=== PATIENT | female | born 2000 | race Caucasian/White ===

== ENCOUNTER 2020-11-11 22:45 | Emergency (ER) | payer SELFPAY ==
[2020-11-11 23:23] VITALS: BP 128/74; PULSE 91; RESP 16; TEMP 36.8; O2SAT 100
--- NOTE | 2020-11-11 23:57 | W.ED.BACK ---
HPI - Back Pain/Injury General: Chief Complaint: Back Pain/Injury Stated Complaint: Left Lower Back Pain Time Seen by Provider: 11/11/20 23:51 History of Present Illness: HPI Narrative: 20-year-old female comes in today for complaints of low back pain. Patient reports she was lifting on her child a couple of days ago and felt a strain in her left lower back. Patient denies any other difficulty. Patient denies any fever or changes in bowel or bladder problem or radiation of pain into the groin. Patient appears well. MD elicited complaint: back pain Review of Systems General: Reports: 10 or more systems reviewed and unremarkable except in HPI and below Musc: Reports: back pain (Left low back pain.) [facility] Female Reproductive History: Date of last menstrual period: 10/18/20 Physical Exam Const: COMMON NORMALS: no acute distress and patient oriented x3 GENERAL APPEARANCE: cooperative HENMT: COMMON NORMALS: normocephalic and Normal external nose present HEAD & SCALP: normal to inspection and normocephalic NOSE: Normal external nose present MOUTH: Normal oral and palatal mucosa present Eye: GENERAL EYE: appearance normal, both eyes and all related structures Neck/C-Spine: COMMON NORMALS: full ROM Chest: COMMONS NORMALS: normal inspection of the chest Resp: COMMON NORMALS: normal respiratory effort EFFORT & INSPECTION: Yes able to speak in complete sentences Cardio: COMMON NORMALS: regular rate and regular rhythm RATE: regular rate RHYTHM: regular rhythm GI: COMMON NORMALS: non-tender Back/Pelvis: THORACIC SPINE/UPPER BACK: No thoracic spinal tenderness LUMBAR SPINE/LOWER BACK: Yes lumbar ROM normal, No lumbar spinal tenderness, Yes paraspinal muscle tenderness Lumbar paraspinal muscle tenderness: left and Yes straight leg raise negative bilaterally Extremity: COMMON NORMALS: normal to inspection Neuro: COMMON NORMALS: patient oriented x3 and moves all extremities Psych: COMMON NORMALS: mental status grossly normal and cooperative Skin: COMMON NORMALS: no rashes or lesions noted GENERAL SKIN EXAM: no rashes or lesions noted Course Vital Signs: Vital signs: Vital Signs Temperature 98.2 F 11/11/20 23:23 Pulse Rate 91 11/11/20 23:23 Respiratory Rate 16 11/11/20 23:23 Blood Pressure 128/74 11/11/20 23:23 Pulse Oximetry 100 11/11/20 23:23 MDM - Back Pain/Injury MDM Narrative: Medical decision making narrative: 20-year-old female comes in today for complaints of left lower back pain. On exam patient appears well. Patient appears in no acute distress. Palpation of the left lower lumbar spine area causes some discomfort and palpable muscle tightness. Differential diagnosis includes not limited to intervertebral disc disease, facet arthropathy, muscle strain. No sign of serious injury or illnesses noted. Reviewed exam with patient with recommendations for treatment and follow-up. Patient reported understanding and agreed to plan. Discharge Plan Discharge Patient Disposition: Home Clinical Impression: Strain of lumbar region Qualifiers: Encounter type: initial encounter Qualified Code(s): S39.012A - Strain of muscle, fascia and tendon of lower back, initial encounter Condition: Stable Discharge Orders: Discharge ED (Routine); Ordered 11/11/20 Ordered By: Reymundo Guadarrama Discharge Diet: Usual diet Discharge Activity: Increase activity as tolerated Patient Instructions: Low Back Strain (ED), Opioid Safety Activity Restrictions/Additional Instructions: Activity as tolerated. Gentle stretching and range of motion exercises. Drink plenty of water. Avoid smoking. Use acetaminophen or ibuprofen for pain. Follow-up with primary care in 7 to 10 days for persistent pain. Return to the ER for high fever, loss of bowel or bladder control, or new concerns. Coding Level of Care Code ED Delivery Engineer for Natty Smith
[2020-11-12 00:22] VITALS: PULSE 81; RESP 18; O2SAT 99
== END 2020-11-12 00:23 | disposition home or self-care (01) ==
PROVIDERS: Emergency Provider Nurse Practitioner Family
DX: S39.012A Strain of muscle, fascia and tendon of lower back, initial encounter (principal); X50.0XXA Overexertion from strenuous movement or load, initial encounter
CPT/HCPCS: 99281

== ENCOUNTER → 2021-11-30 10:11 | Outpatient (BNVA) | payer BC, MEDICAID, SELFPAY | PROVIDERS: Visit Provider Obstetrics & Gynecology | DX: Z34.90 Encounter for supervision of normal pregnancy, unspecified, unspecified trimester (principal) | CPT/HCPCS: 81000; 87081 ==

== ENCOUNTER 2021-12-03 01:19 | Outpatient (CLI) | payer BC, MEDICAID, SELFPAY ==
[2021-12-03] VITALS (12 sets, daily range): BP systolic 110–122; BP diastolic 56–72; PULSE 65–80; RESP 16–17; TEMP 36.1–36.2; BMI 39.6
[2021-12-03] MEDS: lactated ringers 1,000 ML 125 ML IV (02:03)
== END 2021-12-03 04:01 | disposition home or self-care (01) ==
LOC: OPOB 01:20 → OBGYN 01:21
PROVIDERS: Visit Provider Obstetrics & Gynecology
DX: O26.899 Other specified pregnancy related conditions, unspecified trimester (principal); Z3A.00 Weeks of gestation of pregnancy not specified; R10.9 Unspecified abdominal pain
CPT/HCPCS: 59025; 99211

== ENCOUNTER 2021-12-04 14:32 | Outpatient (CLI) | payer BC, MEDICAID, SELFPAY ==
[2021-12-04 14:52] VITALS: BMI 38.7
[2021-12-04 14:57] VITALS: BP 116/62; PULSE 95; RESP 16; TEMP 37; O2SAT 99
[2021-12-04] MEDS: famotidine 20 mg/2 mL INJ IVP (15:15)
[2021-12-04] MEDS: ondansetron 2 mg/ML SDV 2 mL 4 MG IVP (15:17)
[2021-12-04] MEDS: lactated ringers 1,000 ML 999 ML IV (15:20)
[2021-12-04 15:32] LABS: Basophils % 0.3 %; Eosinophils % 0.2 %; Hematocrit 32.6 % (37.0-47.0); Hemoglobin 10.9 g/dL (11.5-15.3); Lymphocytes # 1.7 10^3/uL (0.8-4.8); Lymphocytes % 15.7 %; Mean Corpuscular HGB Conc 33.4 g/dL (30.0-36.0); Mean Corpuscular Volume 77.6 fl (81-99); Mean Platelet Volume 9.5 fL (7.4-10.4); Monocytes # 0.6 10^3/uL (0.2-0.9); Monocytes % 5.5 %; Neutrophils # 8.62 10^3/uL (1.8-7.7); Neutrophils % 77.8 %; Nucleated Red Blood Cells % 0 %; Platelet Count 200 10^3/cmm (130-400); Red Cell Distribution Width 14.1 % (12.1-15.1); White Blood Count 11.1 10^3/uL (4.0-10.0)
[2021-12-04 15:33] VITALS: BP 137/79; PULSE 80
[2021-12-04 15:43] VITALS: BP 126/58; PULSE 75
[2021-12-04 15:59] VITALS: BP 118/57; PULSE 71
[2021-12-04 15:59] LABS: Alanine Aminotransferase 9 U/L (0-33); Albumin Level 3.6 g/dL (3.5-5.2); Alkaline Phosphatase 144 IU/L (35-105); Anion Gap 18.4 (5-19); Aspartate Amino Transferase 5 U/L (0-32); Blood Urea Nitrogen 5 mg/dL (6-20); Carbon Dioxide 18 mmol/L (22-29); Chloride 104 mmol/L (98-107); Glomerular Filtration Rate 201.5 mL/min (90-130); Glucose 81 mg/dL (65-115); Osmolality Calculated 278 mOsm/kg (285-295); Potassium 4.4 mmol/L (3.5-5.1); Sodium 136 mmol/L (136-145); Total Bilirubin 0.4 mg/dL (0.15-1.2); Total Protein 6.6 g/dL (6.6-8.7)
[2021-12-04 16:15] VITALS: BP 122/55; PULSE 73
== END 2021-12-04 16:35 | disposition home or self-care (01) ==
LOC: OPOB 14:32 → OBGYN 14:44
PROVIDERS: Visit Provider Obstetrics & Gynecology
DX: O21.9 Vomiting of pregnancy, unspecified (principal); Z3A.00 Weeks of gestation of pregnancy not specified; E86.0 Dehydration; R50.9 Fever, unspecified
CPT/HCPCS: 36415; 59025; 80053; 85025; 99211; J2405; J3490

== ENCOUNTER → 2021-12-09 10:50 | Outpatient (BNVA) | payer BC, MEDICAID, SELFPAY | PROVIDERS: Visit Provider Obstetrics & Gynecology | DX: Z34.90 Encounter for supervision of normal pregnancy, unspecified, unspecified trimester (principal) | CPT/HCPCS: 81000 ==

== ENCOUNTER 2021-12-14 04:53 | Inpatient (IN) | payer BC, MEDICAID, SELFPAY ==
--- NOTE | 2021-12-06 10:58 | P.ANESASSM_ITS ---
Pre-Anesthetic Assessment Height/Weight: Height 1.63 m Preop Diagnosis: IUP Operation Date: 12/14/21 07:00 Proposed Procedures p Section Repeat 77778,O34.219(Not Applicable) - Radha Echevarria MD Familial anesthetic complications: None Social No alcohol and No tobacco Exam alert, oriented x 3, clear to auscultation bilaterally and regular rate & rhythm Airway Mallampati: Class III Dentition: chipped and other (missing) Pulmonary Asthma (cigarette-smoke induced ) CV/HEM None reported None reported Hepatic None reported GI Gastroesophageal Reflux Disease Metabolic None reported Musc/skel None reported Neuropsych None reported Anesthetic Plan ASA status: 2 Anesthesia: Regional (specify below) Other: spinal Risk of > 500 ml blood loss (7ml/kg in children): Yes, adequate IV access and fluids planned Medications/Allergies Home Medications Medication Instructions Recorded Confirmed Last Taken Type famotidine 40 mg tablet (Pepcid) 40 mg PO DAILY 11/30/21 12/04/21 12/04/21 History metoclopramide HCl 5 mg tablet 5 mg PO DAILY 11/30/21 12/04/21 12/04/21 History (Reglan) vitamins with calcium 1 tab PO DAILY 11/30/21 12/04/21 12/04/21 History no.72-iron 29 mg-folic acid 1 mg tablet ( Plus) sertraline 25 mg tablet (Zoloft) 25 mg PO DAILY 11/30/21 12/04/21 12/04/21 His tory Allergies Allergy/AdvReac Type Severity Reaction Status Date / Time No Known Allergies Allergy Verified 12/04/21 16:14 [facility] Anesthesia Medical History (Updated 12/02/21 @ 12:21 by Radha Echevarria MD) Anxiety Depression History of pyloric stenosis as a child Surgical History (Updated 11/30/21 @ 10:44 by Radha Echevarria MD) History of Family History (Updated 11/30/21 @ 10:13 by Kiah Loaiza LPN) Grandmother Stroke Maternal Breast cancer Paternal Denies family history of Diabetes CAD (coronary artery disease) Hyperlipidemia Chronic kidney disease (CKD) Bleeding disorder Hypertension Thyroid disease Female Reproductive History Date of last menstrual period: 10/18/20 Data Anesthesia Cardiac Studies: No Data to Display
[2021-12-14] VITALS (15 sets, daily range): BP systolic 102–134; BP diastolic 56–94; PULSE 45–80; RESP 14–17; TEMP 36.7–36.9; O2SAT 94–98; BMI 39.1
[2021-12-14 05:34] LABS: Basophils % 0.2 %; Eosinophils % 0.3 %; Hematocrit 34.8 % (37.0-47.0); Hemoglobin 11.2 g/dL (11.5-15.3); Lymphocytes # 2.4 10^3/uL (0.8-4.8); Lymphocytes % 24.2 %; Mean Corpuscular HGB Conc 32.2 g/dL (30.0-36.0); Mean Corpuscular Hemoglobin 25.7 pg (28.0-34.0); Mean Corpuscular Volume 79.8 fl (81-99); Mean Platelet Volume 9.5 fL (7.4-10.4); Monocytes # 0.4 10^3/uL (0.2-0.9); Monocytes % 4.2 %; Neutrophils # 6.96 10^3/uL (1.8-7.7); Neutrophils % 70.6 %; Nucleated Red Blood Cells % 0 %; Platelet Count 167 10^3/cmm (130-400); Red Blood Count 4.36 10^6/uL (4.1-5.3); Red Cell Distribution Width 13.9 % (12.1-15.1); White Blood Count 9.9 10^3/uL (4.0-10.0)
[2021-12-14] MEDS: lactated ringers 1,000 ML 999 ML IV (05:39)
[2021-12-14 05:40] LABS: Add Urine Microscopic? NO; Charge for UA Resulting for Rev
[2021-12-14 05:46] LABS: Bilirubin Urine Neg (Negative); Blood Urine Neg (Negative); Glucose Urine UA Norm (Normal); Ketones Urine Negative (Negative); Leukocyte Esterase Urine Negative (Negative); Nitrate Urine Negative (Negative); Protein Urine Neg (Negative); Urine Appearance Clear (CLEAR); Urine Color Yellow (Yellow); Urobilinogen Urine Norm (Negative); pH Urine 7 (5-7)
[2021-12-14 07:01] LABS: Amphetamines Screen Urine Negative (Negative); Barbiturates Screen Urine Negative (Negative); Benzodiazepines Screen Urine Negative (Negative); Cocaine Screen Urine Negative (Negative); Opiate Screen Urine Negative (Negative); PCP Screen Urine Negative (Negative); THC Screen Urine Negative (Negative)
--- NOTE | 2021-12-14 07:31 | W.PM.OPSUD ---
Surgery/Procedure H&P Update DATE OF PROCEDURE: December 14, 2021 DATE H&P PERFORMED: 12/09/21 H&P UPDATE INFORMATION: I have reviewed H&P completed within last 30 days, I have examined patient prior to procedure and No changes to prior documentation CHANGES TO PREVIOUS DOCUMENTATION: The patient at a donut at 4:00 am, so surgery has been rescheduled for 12:00 PREOP DIAGNOSIS: IUP PLANNED PROCEDURE: Operation Date: 12/14/21 07:00 Proposed Procedures p Section Repeat 44739,O34.219(Not Applicable) - Radha Echevarria MD Related Problem List Diagnoses (1) Rh negative state in antepartum period: (2) Obesity: (3) GERD (gastroesophageal reflux disease): (4) Previous delivery affecting : (5) Supervision of normal :
--- NOTE | 2021-12-14 09:56 | P.ANESASSM_ITS ---
Pre-Anesthetic Assessment Height/Weight: Height 1.63 m Weight 103.419 kg Pulse BP O2 Del Method 74 126/72 12/14/21 06:31 12/14/21 06:31 12/14/21 06:30 Preop Diagnosis: IUP Operation Date: 12/14/21 07:00 Proposed Procedures p Section Repeat 00474,O34.219(Not Applicable) - Radha Echevarria MD Familial anesthetic complications: difficult spinal with prior c section Was Beta Néstor taken within 24 hours: N/A Was Clonidine taken within 24 hours: N/A Last intake: Intake Last Liquid Date 12/14/21 Last Liquid Time 04:00 Last Solid Date 12/14/21 Last Solid Time 04:00 Social No alcohol and No tobacco Exam alert, oriented x 3, clear to auscultation bilaterally and regular rate & rhythm Airway Submandibular: within normal limits Cervical ROM: within normal limits Mallampati: Class I Dentition: full History/ROS No significant complaints Pulmonary None reported CV/HEM None reported None reported Hepatic None reported GI None reported Metabolic None reported Musc/skel None reported Neuropsych Anxiety, Depression and None reported Anesthetic Plan ASA status: 2 Anesthesia: Anesthesia Evaluation and Regional (specify below) (Spinal) Other: We discussed risk and benefits of spinal anesthesia including infection, paralysis/catastrophic nerve injury, back bruising/pain, PDPH, conversion to general in case of spinal failure, intraoperative and PONV, life threatening allergic reaction, post operative ICU admission requiring prolonged intubation, stroke, heart attack. Risk of > 500 ml blood loss (7ml/kg in children): No Medications/Allergies Home Medications Medication Instructions Recorded Confirmed Last Taken Type famotidine 40 mg tablet (Pepcid) 40 mg PO DAILY 11/30/21 12/14/21 12/04/21 [place] metoclopramide HCl 5 mg tablet 5 mg PO DAILY 11/30/21 12/14/21 12/04/21 History (Reglan) vitamins with calcium 1 tab PO DAILY 11/30/21 12/14/21 12/13/21 History no.72-iron 29 mg-folic acid 1 mg tablet ( Plus) sertraline 25 mg tablet (Zoloft) 25 mg PO DAILY 11/30/21 12/14/21 12/13/21 History Allergies Allergy/AdvReac Type Severity Reaction Status Date / Time No Known Allergies Allergy Verified 12/14/21 06:14 [facility] Anesthesia Medical History Anxiety Depression History of pyloric stenosis as a child Surgical History History of Family History Grandmother Stroke Maternal Breast cancer Paternal Denies family history of Diabetes CAD (coronary artery disease) Hyperlipidemia Chronic kidney disease (CKD) Bleeding disorder Hypertension Thyroid disease Female Reproductive History Date of last menstrual period: 10/18/20 : 5 Data Anesthesia : 12/14/21 05:15 Short CBC 12/14/21 Range/Units 05:15 WBC 9.9 (4.0-10.0) 10^3/uL Hgb 11.2 L (11.5-15.3) g/dL Hct 34.8 L (37.0-47.0) % MCV 79.8 L (81-99) fl Plt Count 167 (130-400) 10^3/cmm Neut % (Auto) 70.6 % Neut # (Auto) 6.96 (1.8-7.7) 10^3/uL Urine 12/14/21 Range/Units 05:15 Urine Color Yellow (Yellow) Urine Appearance Clear (CLEAR) Urine pH 7 (5-7) Ur Specific [place] 1.010 (1.005-1.030) Urine Protein Neg (Negative) Urine Glucose (UA) Norm (Normal) Urine Ketones Negative (Negative) Urine Nitrate Negative (Negative) Urine Bilirubin Neg (Negative) Ur Leukocyte Esterase Negative (Negative) Blood Bank 12/14/21 05:15 Blood Type A Negative Rho(D) Type Negative Cardiac Studies: No Data to Display
[2021-12-14] MEDS: ceFAZolin 2,000 MG in sodium chloride 0.9% (plus) 50 ML 100 MG IV (11:22)
[2021-12-14] MEDS: lactated ringers 1,000 ML 125 ML IV (11:23)
[2021-12-14] MEDS: citric acid-sodium citrate 30 mL UDC PO (11:34)
[2021-12-14] MEDS: metoclopramide 5 mg/mL SDV 2 mL 10 MG IVP ×2 (11:34→11:35)
--- NOTE | 2021-12-14 13:13 | PM.OP ---
Operative Report Date of procedure: December 14, 2021 Pre-op diagnosis: Preop Diagnosis IUP @ 39 weeks, previous , desires repeat Post-op diagnosis: same Post-op findings: normal appearing uterus, tubes and ovaries. Narrow pelvis Procedure done: repeat Specimens removed/disposition: placenta-discarded Pathology: none sent Surgeon: Radha Echevarria Anesthesia: Other (spinal) and None Estimated blood loss (mL): 150 IV fluids (mL): 1,400 Urine output (mL): 250 Complications: none Findings: term male in the cephalic presentation with a single nuchal cord Condition: stable Disposition: floor Brief History: The patient presented for a repeat . The patient admitted to eating a doughnut on the way to the hospital. The surgery was postponed for 8 hours and the proceeded Procedure: The patient was taken to the operating room where spinal anesthesia was administered and found to be adequate. She was prepped and draped in the normal sterile fashion in the dorsal supine position with a leftward tilt. A Pfannenstiel skin incision was made and carried down to the underlying layer of fascia. The fascia was nicked in the midline and extended laterally with the Moctezuma scissors. The fascia was then tented up and the rectus muscles dissected off sharply. The rectus muscles were and the peritoneum entered bluntly with the digit. The peritoneal incision was extended superiorly and inferiorly with good visualization of the bladder. The Christiano O retractor was placed. It was clear of any bowel or omentum. The bladder flap was created sharply with the Metzenbaum scissors. A low transverse uterine incision was made and carried down to the bag of water. The bag of water was ruptured and the uterine incision extended cephalocaudad. The scalp was grasped but was unable to be brought through the incision. A vacuum was placed and the head delivered. A single nuchal cord was reduced. The nose and mouth were bulb suctioned. The shoulders and body delivered atraumatically. The baby was allowed to rest, while being dried, for 1 minute and then the cord was clamped and cut. The baby was handed to the waiting final assembly inspector. The placenta was delivered by expression. The uterus was exteriorized and cleared of all clots and debris. The uterine incision was closed with 0 Vicryl in a running fashion. A second imbricating layer of 3-0 Monocryl was used to close the uterus. The bladder flap was closed with 3-0 Monocryl. There was excellent hemostasis. The Christiano O retractor was removed. The uterus was returned to the abdomen. The peritoneum was closed with 3-0 Monocryl, incorporating the rectus muscle. The fascia was closed with 0 Vicryl in 2 separate sutures overlapping in the midline. The skin was closed with absorbable raeann. Apgars on baby 9 at 1 minute and 9 at 5 minutes. weight 7 pounds 11 ounces. Mother and baby were stable post delivery.
[2021-12-14] MEDS: ketorolac 30 mg/mL INJ IVP ×2 (14:21→20:52)
--- NOTE | 2021-12-14 14:26 | ANE.PACU2 ---
Inpatient post-anesthesia follow up: Airway intact: Yes Vital signs: Temperature Pulse Rate 65 Respiratory Rate 15 Blood Pressure 128/65 Pulse Oximetry Oxygen Delivery Me thod Room Air Oxygen Flow Rate Fraction of Inspir ed Oxygen Hydration adequate: Yes Nausea and vomiting: No Pain level: 3 Mental status: Baseline
[2021-12-14] MEDS: ondansetron 2 mg/ML SDV 2 mL 4 MG IVP (15:21)
[2021-12-14] MEDS: lactated ringers 1,000 ML 75 ML IV (15:53)
[2021-12-14] MEDS: oxytocin 30 UNIT/500 ML BAG 50 UNIT IV (15:54)
[2021-12-14] MEDS: docusate sodium 100 mg Capsule PO (20:52)
[2021-12-15] MEDS: oxytocin 30 UNIT/500 ML BAG 50 UNIT IV (01:22)
[2021-12-15 01:53] LABS: Hematocrit 32.2 % (37.0-47.0); Hemoglobin 10.7 g/dL (11.5-15.3); Mean Corpuscular HGB Conc 33.2 g/dL (30.0-36.0); Mean Corpuscular Hemoglobin 25.7 pg (28.0-34.0); Mean Corpuscular Volume 77.4 fl (81-99); Mean Platelet Volume 9.1 fL (7.4-10.4); Platelet Count 145 10^3/cmm (130-400); Red Blood Count 4.16 10^6/uL (4.1-5.3); Red Cell Distribution Width 13.7 % (12.1-15.1); White Blood Count 10.1 10^3/uL (4.0-10.0)
[2021-12-15 03:25] VITALS: BP 131/75; PULSE 59; RESP 16
[2021-12-15] MEDS: lactated ringers 1,000 ML 125 ML IV (04:35)
[2021-12-15] MEDS: ketorolac 30 mg/mL INJ IVP (04:39)
--- NOTE | 2021-12-15 07:55 | P.PN_ITS ---
Subjective Subjective: The patient has no concerns after her section yesterday. Vitals/I&O/Wt Last Vital Signs Temp 98.4 F 12/14/21 23:25 Pulse 59 L 12/15/21 03:25 Resp 16 12/15/21 03:25 BP 131/75 12/15/21 03:25 Pulse Ox 98 12/14/21 21:25 O2 Del Method 12/15/21 03:25 12/14/21 12/15/21 12/15/21 22:59 06:59 14:59 Intake Total 1000 / 1000 473.333 / 1473.333 Output Total 685 / 935 475 / 1410 Balance 315 / 65 -1.667 / 63.333 Weight last 48 hrs Weight 228 lb Weight 228 lb Physical Exam Narrative: The patient is doing well this morning. No concerns Const: COMMON NORMALS: no acute distress, patient oriented x3, no limitations, healthy appearing, alert and well nourished GENERAL APPEARANCE: cooperative, comfortable, well kempt and well developed ORIENTATION/CONSCIOUSNESS: Yes awake, Yes oriented to person, Yes oriented to place and Yes oriented to time Resp: COMMON NORMALS: normal respiratory effort EFFORT & INSPECTION: Yes able to speak in complete sentences GI: COMMON NORMALS: Soft to palpation and non-tender PALPATION: Yes Soft to palpation Extremity: COMMON NORMALS: no calf tenderness Neuro: COMMON NORMALS: patient oriented x3 SENSORIUM/ORIENTATION: Yes alert, Yes oriented to person, Yes oriented to place and Yes oriented to time Psych: APPEARANCE: Yes well kempt Urinary Catheter Management: Moncada: Cath Placed During This Visit: yes Reason for Continuing Indwelling Catheter: Required Immobilization for Trauma or Surgery or Anesthesia Urinary Catheter Date of Insertion: 12/14/21 Urinary Catheter Time of Insertion: 12:17 Data : 12/15/21 01:48 A&P Assessment and plan (1) Previous delivery affecting : routine postoperative care plan for discharge tomorrow Status: Acute Attestations Medical Necessity Statement*: she had a . She will be her two midnights. Coding Level of Care Code Acute Seasonal Delivery Driver for Ninfag Sarah Diagnoses Previous delivery affecting O34.219
[2021-12-15] MEDS: docusate sodium 100 mg Capsule PO ×2 (09:37→22:10)
[2021-12-15] MEDS: prenatal vitamin Capsule 1 CAP PO (09:37)
[2021-12-15] MEDS: ferrous sulfate EC 325 mg Tablet PO (09:37)
[2021-12-15] MEDS: ibuprofen 800 mg tablet PO ×3 (09:37→22:09)
[2021-12-15 13:21] VITALS: BP 110/65; PULSE 75; RESP 15; TEMP 36.7; O2SAT 96
[2021-12-15 14:18] VITALS: RESP 16
[2021-12-15] MEDS: oxyCODONE-APAP 5-325 mg Tablet PO (14:18)
[2021-12-15 22:16] VITALS: BP 116/67; PULSE 78; RESP 16; TEMP 36.8
[2021-12-16 04:28] VITALS: BP 131/76; PULSE 78; RESP 16; TEMP 36.7
[2021-12-16 05:49] VITALS: RESP 16
[2021-12-16] MEDS: oxyCODONE-APAP 5-325 mg Tablet PO (05:49)
--- NOTE | 2021-12-16 09:16 | PM.DCS ---
Discharge Providers Date of Admission: 12/14/21 04:53 Date of Discharge: December 16, 2021 Attending Provider at Admission: Radha Echevarria MD Attending Provider at Discharge: Radha Echevarria MD Diagnoses at Discharge Discharge Diagnosis (1) Previous delivery affecting : Status: Acute Reason for Visit Reason for Visit: EDC 12/14/21 Hospital Course Hospital Course The patient was admitted for repeat . She ate on the way to the hospital and so the surgery was delayed 8 hours. She did well postoperatively and was ready for discharge on day #3. Physical Exam Narrative: doing well. No concerns today Const: COMMON NORMALS: no acute distress, patient oriented x3, no limitations, healthy appearing, alert and well nourished GENERAL APPEARANCE: cooperative, comfortable, well kempt and well developed ORIENTATION/CONSCIOUSNESS: Yes awake, Yes oriented to person, Yes oriented to place and Yes oriented to time Resp: COMMON NORMALS: normal respiratory effort EFFORT & INSPECTION: Yes able to speak in complete sentences GI: COMMON NORMALS: Soft to palpation and non-tender PALPATION: Yes Soft to palpation Extremity: COMMON NORMALS: no calf tenderness Neuro: COMMON NORMALS: patient oriented x3 SENSORIUM/ORIENTATION: Yes alert, Yes oriented to person, Yes oriented to place and Yes oriented to time Psych: APPEARANCE: Yes well kempt Urinary Catheter Management: Moncada: Cath Placed During This Visit: yes, but has since been removed by the nurse Reason for Continuing Indwelling Catheter: Decision to DC Catheter Urinary Catheter Date of Insertion: 12/14/21 Urinary Catheter Time of Insertion: 12:17 Date Urinary Catheter Removed: 12/15/21 Time Urinary Catheter Discontinued: 08:00 Discharge Data Studies Completed and Pending Laboratory Results WBC 10.1 10^3/uL (4.0-10.0) H 12/15/21 01:48 RBC 4.16 10^6/uL (4.1-5.3) 12/15/21 01:48 Hgb 10.7 g/dL (11.5-15.3) L 12/15/21 01:48 Hct 32.2 % (37.0-47.0) L 12/15/21 01:48 MCV 77.4 fl (81-99) L 12/15/21 01:48 MCH 25.7 pg (28.0-34.0) L 12/15/21 01:48 MCHC 33.2 g/dL (30.0-36.0) 12/15/21 01:48 RDW 13.7 % (12.1-15.1) 12/15/21 01:48 Plt Count 145 10^3/cmm (130-400) 12/15/21 01:48 MPV 9.1 fL (7.4-10.4) 12/15/21 01:48 Neut % (Auto) 70.6 % 12/14/21 05:15 Lymph % (Auto) 24.2 % 12/14/21 05:15 [place] % (Auto) 4.2 % 12/14/21 05:15 Eos % (Auto) 0.3 % 12/14/21 05:15 Baso % (Auto) 0.2 % 12/14/21 05:15 Neut # (Auto) 6.96 10^3/uL (1.8-7.7) 12/14/21 05:15 Lymph # (Auto) 2.4 10^3/uL (0.8-4.8) 12/14/21 05:15 [place] # (Auto) 0.4 10^3/uL (0.2-0.9) 12/14/21 05:15 Eos # (Auto) 0.0 10^3/uL (0.0-0.8) 12/14/21 05:15 Baso # (Auto) 0.0 10^3/uL (0.0-0.1) 12/14/21 05:15 Nucleated RBC % (auto) 0 % 12/14/21 05:15 Nucleated RBCs # 0.0 /100WBC 12/14/21 05:15 Urine Color Yellow (Yellow) 12/14/21 05:15 Urine Appearance Clear (CLEAR) 12/14/21 05:15 Urine pH 7 (5-7) 12/14/21 05:15 Ur Specific [place] 1.010 (1.005-1.030) 12/14/21 05:15 Urine Protein Neg (Negative) 12/14/21 05:15 Urine Glucose (UA) Norm (Normal) 12/14/21 05:15 Urine Ketones Negative (Negative) 12/14/21 05:15 Urine Blood Neg (Negative) 12/14/21 05:15 Urine Nitrate Negative (Negative) 12/14/21 05:15 Urine Bilirubin Neg (Negative) 12/14/21 05:15 Urine Urobilinogen Norm mg/dL (Negative) 12/14/21 05:15 Ur Leukocyte Esterase Negative (Negative) 12/14/21 05:15 Urine Opiates Screen Negative ng/mL (Negative) 12/14/21 05:15 Ur Barbiturates Screen Negative ng/mL (Negative) 12/14/21 05:15 Ur Phencyclidine Scrn Negative ng/mL (Negative) 12/14/21 05:15 Ur Amphetamines Screen Negative ng/mL (Negative) 12/14/21 05:15 U Benzodiazepines Scrn Negative ng/mL (Negative) 12/14/21 05:15 Urine Cocaine Screen Negative ng/mL (Negative) 12/14/21 05:15 U Marijuana (THC) Screen Negative ng/mL (Negative) 12/14/21 05:15 Blood Type A Negative 12/14/21 05:15 Rho(D) Type Negative 12/14/21 05:15 Vitals Last Vital Signs Temp 98.1 F 12/16/21 04:28 Pulse 78 12/16/21 04:28 Resp 16 12/16/21 05:49 BP 131/76 12/16/21 04:28 Pulse Ox 96 12/15/21 13:21 O2 Del Method 12/15/21 13:21 Discharge Plan Discharge Patient Disposition: Home Condition: Stable Prescriptions: New ibuprofen 800 mg Tablet 800 mg PO TID Qty: 30 0RF oxycodone-acetaminophen 5-325 mg Tablet 1 tab PO Q4H PRN (Reason: Moderate To Severe Pain) Qty: 30 0RF docusate sodium 100 mg Capsule 100 mg PO BID Qty: 60 0RF ferrous sulfate 325 mg (65 mg iron) Tablet,Delayed Release (Dr/Ec) 325 mg PO BIDWM Qty: 60 2RF Continued sertraline [Zoloft] 25 mg tablet 25 mg PO DAILY Plus 29 mg iron- 1 mg tablet 1 tab PO DAILY metoclopramide HCl [Reglan] 5 mg tablet 5 mg PO DAILY famotidine [Pepcid] 40 mg tablet 40 mg PO DAILY Hold Instructions: Doctor's Order Discharge Orders: Discharge Order (Routine); Ordered 12/16/21 Ordered By: Radha Echevarria Referrals: Radha Echevarria MD [Physician] - 12/21/21 9:45 am (Your [address] Echevarria is January 23, 2022 at 4:00 p.m.) Patient Instructions: Iron Supplements (By mouth) (Duofer, Fe-20, Bifera, Augusto-Iron), Ibuprofen (By mouth), Oxycodone/Acetaminophen (By mouth), Vitamins (By mouth), Laxative, Stool Softeners (By mouth), Depression (DC), How to Increase Your Milk Supply (DC), Preeclampsia and Eclampsia After Delivery (GEN), Complications of Infection (GEN), Hemorrhage (DC), OB Discharge Report, OB Food/Drug Interaction Guide, OB Care at Home, Opioid Safety, Post Operative Pain, Abnormal Bleeding Discharge Attestations Time Spent in Discharge Care*: less than 30 min Quality Metrics Clinical Quality Measures [ No reported AMI, CVA or VTE this stay] Coding Level of Care Code Acute Chg FW DC note Diagnoses Previous delivery affecting O34.219
[2021-12-16] MEDS: prenatal vitamin Capsule 1 CAP PO (10:11)
[2021-12-16] MEDS: docusate sodium 100 mg Capsule PO (10:11)
[2021-12-16] MEDS: ibuprofen 800 mg tablet PO (10:11)
[2021-12-16 14:25] VITALS: BP 123/79; PULSE 67; RESP 16; TEMP 36.8; O2SAT 96
== END 2021-12-16 14:25 | disposition home or self-care (01) | DRG 788 ==
PROVIDERS: Admitting Provider Obstetrics & Gynecology; Visit Provider Obstetrics & Gynecology
PROC: 10D00Z1 Extraction of Products of Conception, Low, Open Approach (ICD-10-PCS; CPT 59514; principal; 2021-12-14 07:00)
DX: O34.219 Maternal care for unspecified type scar from previous cesarean delivery (principal); O69.81X0 Labor and delivery complicated by cord around neck, without compression, not applicable or unspecified; O99.214 Obesity complicating childbirth; E66.9 Obesity, unspecified; O99.62 Diseases of the digestive system complicating childbirth; K21.9 Gastro-esophageal reflux disease without esophagitis; O99.344 Other mental disorders complicating childbirth; F41.9 Anxiety disorder, unspecified; F32.A Depression, unspecified; O26.893 Other specified pregnancy related conditions, third trimester; Z37.0 Single live birth; Z3A.39 39 weeks gestation of pregnancy; Z67.91 Unspecified blood type, Rh negative
CPT/HCPCS: 36415; 51702; 59025; 59409; 80306; 81003; 85025; 85027; 86900; J1885; J2274; J2370; J2405; J2704; J2765